=== PATIENT | male | born 1990 | race African-American/Black ===

== ENCOUNTER 2022-06-21 14:19 | Emergency (ER) | payer OTHER ==
[~2022-06-21] VITALS: Ht 185 cm; Wt 114.0 kg
[2022-06-21 14:49] LABS: CLARITY,URINE SLT CLEAR; COLOR,URINE PALE YELLOW
[2022-06-21 14:50] LABS: BACTERIA,URINE TRACE /HPF; BILIRUBIN,URINE NEGATIVE (NEGATIVE); GLUCOSE, URINE (UA) NEGATIVE (NEGATIVE); KETONES,URINE NEGATIVE (NEGATIVE); LEUKOCYTE ESTERASE ,URINE 2+ (NEGATIVE); NITRITE,URINE NEGATIVE (NEGATIVE); PH,URINE 6.5 (5-9); PROTEIN,URINE NEGATIVE (NEGATIVE); RBC,URINE RARE /HPF; WBC,URINE 50-100 /HPF
[2022-06-21] MEDS ORDERED: cefTRIAXone 1,000 MG VIAL IM STA (14:58)
[2022-06-21] MEDS ORDERED: AZITHROMYCIN 250 MG TAB (ZITHROMAX) PO STA (14:58)
[2022-06-21] MEDS ORDERED: LIDOCAINE 1% INJ 50 ML (XYLOCAINE) VIAL IJ STA (14:58)
--- NOTE | 2022-06-21 15:01 | ED General ---
General Chief Complaint: General Problems/Pain Stated Complaint: BOWEL DISCOMFORT Nursing Triage Note: Patient has presented to ER with cc of burning with voiding for the last 4 days. He also reports that he has had some congestion after being exposed to his daughter who is flu positive. Source of Information: Patient History of Present Illness Date Seen by Provider: Jun 21, 2022 Time Seen by Provider: 14:21 Initial Comments 32-year-old male presenting with complaints of burning with urination for the last 4 days. He also had been around his daughter who was influenza positive this last weekend. He started having nasal congestion and cough as well. He reports sore throat from the drainage. He did do a home COVID test which was negative. He denies feeling short of breath. He has no fever, chills, abdominal pain, nausea, vomiting. He had unprotected sex about a month ago with his partner. This is the same partner he has had for the last several months. Timing/Duration: 4-5 Days Severity: Moderate Modifying Factors: worse with Other (Urination) Associated Systoms: No Chest Pain; Cough; No Diaphoresis, No Fever/Chills, No Headaches, No Loss of Appetite, No Malaise, No Nausea/Vomiting, No Rash, No Seizure, No Shortness of Air, No Syncope, No Weakness Allergies and Home Medications Allergies Coded Allergies: No Known Drug Allergies (Unverified , 06/21/22) Patient Home Medication List Home Medication List Reviewed: Yes Ciprofloxacin HCl (Ciprofloxacin HCl) 500 Mg Tablet, 500 MG PO BID Prescribed by: LARY MELISSA on 06/21/22 1527 Review of Systems Review of Systems Constitutional: No chills, No fever EENTM: nose congestion, throat pain; No ear pain, No epistaxis Respiratory: cough (mild); No dyspnea on exertion Cardiovascular: No chest pain Gastrointestinal: no symptoms reported Genitourinary: see HPI Musculoskeletal: no symptoms reported Skin: no symptoms reported Psychiatric/Neurological: No Symptoms Reported Hematologic/Lymphatic: No Symptoms Reported Past [id number] Hx Patient Social History Tobacco Use?: No Use of E-Cig and/or Vaping dev: No Substance use?: No Alcohol Use?: No Physical Exam Vital Signs Vital Signs - First Documented 06/21/22 14:40 Temp 36.4 Pulse 107 Resp 16 B/P (MAP) 144/87 (106) Pulse Ox 99 O2 Delivery Room Air Capillary Refill : Height, Weight, BMI Height: '" Weight: lbs. oz. kg; 33.00 BMI Method: General Appearance: No Apparent Distress, WD/WN HEENT: PERRL/EOMI, Moist Mucous Membranes; No Photophobia Neck: Full Range of Motion, Normal Inspection, Non Tender, Supple Respiratory: Chest Non Tender, Lungs Clear, Normal Breath Sounds, No Accessory Muscle Use, No Respiratory Distress Cardiovascular: Normal Peripheral Pulses, Tachycardia Neurologic/Psychiatric: Alert, Oriented x3, brick paver II-XII Norm as Tested Skin: Normal Color, Warm/Dry Progress/Results/Core Measures Suspected Sepsis SIRS Temperature: Pulse: 107 Respiratory Rate: 16 Blood Pressure 144 /87 Mean: 106 Results/Orders Lab Results Laboratory Tests Test 06/21/22 14:24 Range/Units Urine Color PALE YELLOW Urine Clarity SLT CLEAR Urine pH 6.5 5-9 Urine Specific [place] <=1.005 1.016-1.022 Urine Protein NEGATIVE NEGATIVE Urine Glucose (UA) NEGATIVE NEGATIVE Urine Ketones NEGATIVE NEGATIVE Urine Nitrite NEGATIVE NEGATIVE Urine Bilirubin NEGATIVE NEGATIVE Urine Urobilinogen 0.2 < = 1.0 MG/DL Urine Leukocyte Esterase 2+ H NEGATIVE Urine RBC (Auto) 1+ H NEGATIVE Urine RBC RARE /HPF Urine WBC 50-100 H /HPF Urine Squamous Epithelial Cells NONE /HPF Urine Crystals NONE /LPF Urine Bacteria TRACE /HPF Urine Casts NONE /LPF Urine Mucus NEGATIVE /LPF Urine Culture Indicated YES Influenza Type A (RT-PCR) Detected H Not Detecte Influenza Type B (RT-PCR) Not Detected Not Detecte My Orders Orders - LARY MELISSA MD Ua Culture If Indicated (06/21/22 14:30) Neis Chai Dna Urine Test (06/21/22 14:30) Chlamydia Trachomatis Urine (06/21/22 14:30) Influenza A And B By Pcr (06/21/22 14:30) Urine Culture (06/21/22 14:24) Ceftriaxone (Rocephin) (06/21/22 14:58) Azithromycin Tablet (Zithromax Tablet) (06/21/22 14:58) Lidocaine 1% Inj 50 Ml (Xylocaine 1% Inj (06/21/22 14:58) Vital Signs/I&O 06/21/22 06/21/22 14:40 15:33 Temp 36.4 36.4 Pulse 107 107 Resp 16 16 B/P (MAP) 144/87 (106) 144/87 Pulse Ox 99 99 O2 Delivery Room Air Room Air Capillary Refill : Blood Pressure Mean: 106 Progress Note #1: Progress Note With his complaint of burning and pain with urination as well as discharge a few days ago will obtain a urinalysis along with gonorrhea and Chlamydia testing. In terms of his exposure to influenza we will obtain a flu swab to check for that. Differential diagnosis includes UTI, influenza, COVID, pneumonia, sinusitis, upper respiratory infection, sexually transmitted infection Progress Note #2: Progress Note Urinalysis shows signs of leukocyte esterase and white blood cells with bacteria. Will treat with Rocephin and Zithromax here to help cover for sexually transmitted infections. Continue with Cipro by mouth to treat for possible UTI. Culture results as well as testing for gonorrhea and chlamydia are pending. The influenza swab was positive on the patient as well also updated patient and will recommend isolation and wearing a mask until he is over his symptoms. Per review of the CDC website he should isolate until he has no fever without having it treated and isolate until his symptoms have resolved at least 4 to 5 days after his symptoms started Departure Impression Primary Impression: Acute cystitis without hematuria Additional Impression: Influenza A Disposition: HOME, SELF-CARE Condition: Stable Departure-Patient Inst. Decision time for Depature: 15:23 Referrals: [facility] Patient Instructions: Flu, Adult ED, Urinary Tract Infection, Adult ED Add. Discharge Instructions: Stay well hydrated and drink plenty of water and cranberry juice to help flush out your urine infection. Symptomatic treatment for your Influenza. Isolate and wear a mask if you are around people at least until your symptoms of congestion and cough have cleared and no fever for 24 hours. Avoid sexual contact until test results are back in next few days. If you are positive for Gonorrhea or Chlamydia you will get a call about the result. All discharge instructions reviewed with patient and/or family. Voiced understanding. Scripts Ciprofloxacin HCl (Ciprofloxacin HCl) 500 Mg Tablet 500 MG PO BID for UTI for 7 Days, #14 TAB 0 Refills Prov: LARY MELISSA MD 06/21/22 Work/School Note: Work Release Form Date Seen in the Emergency Department: Jun 21, 2022 Return to Work: Jun 25, 2022 Restrictions: Return-No Fever (24hrs) Other Restrictions Listed Below: Influenza A positive. Isolate until symptoms clear. no fever for 24 hours LARY MELISSA MD Jun 21, 2022 15:01
[2022-06-21] MEDS ORDERED: CIPR500T5 PO (15:27)
[2022-06-21 15:33] VITALS: BP 144/87
== END 2022-06-21 15:33 | disposition home or self-care (01) ==
LOC: ER FS 14:21
DX: N30.00 Acute cystitis without hematuria (principal); J10.1 Influenza due to other identified influenza virus with other respiratory manifestations; Z28.310 Unvaccinated for COVID-19
CPT/HCPCS: 36415; 81000; 87077; 87088; 87491; 87591; 87636; 99284